=== PATIENT | female | born 1955 | race Caucasian/White ===

== ENCOUNTER → 2017-06-02 | Outpatient (CLI) | payer OTHER ==
[~2017-06-02] MED LIST: BUTRANS10 MCG/HR TD; BUTRANS5 MCG/HR T; CALTRATE 600+D1 EACH PO; CLARITIN10 MG PO; MEDROL DOSEPAK4 MG PO; PERCOCET 325 MG1 TA2 PO; PERCOCET 325 MG1 TA5 PO; RUFEN800 MG PO; ULTRAM50 MG PO; ZITHROMAX Z PA250 MG PO; ZOCOR20 MG PO
[2017-06-02 09:12] LABS: BASO # 0.1 10*3/uL (0.0-0.1); BASO % 0.4 % (0.0-1.0); EOS # 0.7 10*3/uL (0.0-0.4); EOS % 5.1 % (1.0-4.0); HEMATOCRIT 47.9 % (37.0-47.0); HEMOGLOBIN 15.6 g/dl (12.0-16.0); LYMPH # 3.6 10*3/uL (1.3-4.4); LYMPH % 25.4 % (27.0-41.0); MEAN CELL VOLUME 93.4 fl (81.0-99.0); MEAN CORPUSCULAR HGB 30.4 pg (27.0-31.0); MEAN CORPUSCULAR HGB CONC 32.6 g/dl (33.0-37.0); MEAN PLATELET VOLUME 12.6 fl (9.6-12.3); MONO # 0.7 10*3/uL (0.1-1.0); NEUT # 9.1 10*3/uL (2.3-7.9); NEUT % 63.8 % (47.0-73.0); PLATELET COUNT AUTOMATED 237 10*3/uL (130-400); RED BLOOD COUNT 5.13 10*6/uL (4.10-5.10); RED CELL DISTRI WIDTH 13.2 % (0-14.5); WHITE BLOOD COUNT 14.3 10*3/uL (4.8-10.8)
[2017-06-02 09:18] LABS: ALBUMIN 3.5 gm/dl (3.1-4.5); ALKALINE PHOSPHATASE 136 U/L (45-117); BUN 10 mg/dl (7-24); CHLORIDE 105 mmol/L (98-107); CHOLESTEROL 249 mg/dL (<200); CREATININE 0.84 mg/dL (0.55-1.02); HDL CHOLESTEROL 42 mg/dl (40-60); LDL CHOLESTEROL 165 mg/dL (9-159); POTASSIUM 4.7 mmol/L (3.5-5.1); SGOT/AST 10 IU/L (3-35); SGPT/ALT 21 U/L (12-78); SODIUM 142 mmol/L (136-145); TOTAL PROTEIN 7.5 gm/dL (6.4-8.2); TRIGLYCERIDES 211 mg/dl (<150); VLDL CHOLESTEROL 42 mg/dL (6-40)
== END | disposition home or self-care (01) ==
LOC: LAB 08:11
PROVIDERS: Family Medicine
DX: J94.8 Other specified pleural conditions (principal); J43.9 Emphysema, unspecified; E78.5 Hyperlipidemia, unspecified; T17.908A Unspecified foreign body in respiratory tract, part unspecified causing other injury, initial encounter; J06.9 Acute upper respiratory infection, unspecified; F17.210 Nicotine dependence, cigarettes, uncomplicated

== ENCOUNTER → 2019-03-07 | Outpatient (CLI) | payer OTHER | END | disposition home or self-care (01) | LOC: MAMMO 08:20 | DX: Z12.31 Encounter for screening mammogram for malignant neoplasm of breast (principal) ==

== ENCOUNTER → 2019-03-20 | Outpatient (CLI) | payer OTHER | END | disposition home or self-care (01) | LOC: CARD 01:25 | DX: Z13.820 Encounter for screening for osteoporosis (principal); R06.00 Dyspnea, unspecified; F17.210 Nicotine dependence, cigarettes, uncomplicated; M25.561 Pain in right knee ==

== ENCOUNTER → 2019-03-28 | Outpatient (CLI) | payer OTHER | END | disposition home or self-care (01) | LOC: RAD 03-01 13:30 | DX: Z13.820 Encounter for screening for osteoporosis (principal); M25.561 Pain in right knee; M25.562 Pain in left knee; F17.210 Nicotine dependence, cigarettes, uncomplicated; R06.00 Dyspnea, unspecified ==

== ENCOUNTER → 2019-04-16 | Outpatient (CLI) | payer OTHER | END | disposition home or self-care (01) | LOC: RAD 07:20 | DX: J44.9 Chronic obstructive pulmonary disease, unspecified (principal); M25.561 Pain in right knee; M25.562 Pain in left knee; R06.02 Shortness of breath ==

== ENCOUNTER → 2019-04-17 | Outpatient (CLI) | payer OTHER ==
--- NOTE | ~2019-04-17 | PF ---
[place], [place] PULMONARY FUNCTION TEST NAME: [id number] UNIT #: [id number] ROOM: DOCTOR: CHADD LANDERS MD,ANTONIA BIRTHDATE: [birth year] DOS: 04/17/2019 ORDERED BY: Laura Moreira DO HISTORY: The patient recorded as 63-year-old female, height of 65 inches, weight of 200 pounds with BMI 33.3. The test was done for assessment of symptoms of coughing and shortness of breath. Tobacco use noted 1 pack of cigarettes per day for 50 years. SPIROMETRY: The FVC was recorded 1.88 liters, 59% predicted value with a 50% improvement and complete resolution to normal FEV1 after post-bronchodilators as 90% noted. The FEV1 recorded 1.42 liters, 57% predicted value, moderately decreased with complete resolution to normal FEV1 as 84% with 46% change. Ratio of FEV1/FVC recorded 79%. Flow volume loop was suggestive of reversible obstructive lung disease. LUNG VOLUME: Thoracic gas volume recorded as 145%, residual volume 202%, total lung capacity 126%. RV/TLC ratio of 157%, moderate reduction in lung diffusion recorded 60% without correction of carbon monoxide, hemoglobin values. The patient has normal lung function of airway resistance and passive conductance noted with reversibility after bronchodilator. FINAL IMPRESSION: Current test was suggestive of finding consistent with a severe bronchial asthma. Clinical correlation would be advised. ANTONIA FLORENTINO MD CM:PFREPORT:PULMONARY FUNCTION TEST [id number] ANTONIA LANDERS MD
== END | disposition home or self-care (01) ==
LOC: CP 04-04 02:01
DX: R06.00 Dyspnea, unspecified (principal); F17.200 Nicotine dependence, unspecified, uncomplicated

== ENCOUNTER 2020-11-26 10:32 | Emergency (ER) | payer MEDICARE ==
[~2020-11-26] VITALS: Wt 107.5 kg
[2020-11-26 11:26] LABS: BASO % 0.3 % (0.0-1.0); EOS # 0.4 10*3/uL (0.0-0.4); EOS % 3.8 % (1.0-4.0); HEMATOCRIT 46.4 % (37.0-47.0); LYMPH # 2.6 10*3/uL (1.3-4.4); LYMPH % 26.1 % (27.0-41.0); MEAN CELL VOLUME 92.8 fl (81.0-99.0); MEAN CORPUSCULAR HGB CONC 32.3 g/dl (33.0-37.0); MONO # 0.6 10*3/uL (0.1-1.0); NEUT # 6.3 10*3/uL (2.3-7.9); NEUT % 63.5 % (47.0-73.0); PLATELET COUNT AUTOMATED 215 10*3/uL (130-400); RED CELL DISTRI WIDTH 12.9 % (0-14.5)
[2020-11-26 11:46] LABS: ALBUMIN 3.5 gm/dl (3.1-4.5); ALKALINE PHOSPHATASE 135 U/L (45-117); BUN 8 mg/dl (7-24); CHLORIDE 105 mmol/L (98-107); CREATININE 0.91 mg/dL (0.55-1.02); POTASSIUM 4.2 mmol/L (3.5-5.1); SGOT/AST 8 IU/L (3-35); SGPT/ALT 25 U/L (12-78); SODIUM 139 mmol/L (136-145); TOTAL PROTEIN 7.3 gm/dL (6.4-8.2)
[2020-11-26 11:52] LABS: TROPONIN I < 0.015 ng/ml (<0.045)
[2020-11-26] MEDS ORDERED: AVPAK AZITHROM250 M1 PO (13:05)
[2020-11-26] MEDS ORDERED: PREDNISONE50 MG PO (13:05)
[2020-11-26] MEDS ORDERED: PROAIR HFA8.5 GM INH (13:05)
== END 2020-11-26 13:20 | disposition home or self-care (01) ==
LOC: ED 10:32
PROVIDERS: Internal Medicine
DX: J44.1 Chronic obstructive pulmonary disease with (acute) exacerbation (principal); F17.200 Nicotine dependence, unspecified, uncomplicated; Z90.89 Acquired absence of other organs; Z88.5 Allergy status to narcotic agent

== ENCOUNTER → 2020-12-18 | Outpatient (CLI) | payer MEDICARE ==
[~2020-12-18] MED LIST changes: +AVPAK AZITHROM250 M1 PO; +PREDNISONE50 MG PO; +PROAIR HFA8.5 GM INH
== END | disposition home or self-care (01) ==
LOC: MAMMO 10:30
PROVIDERS: ATTEND Family Medicine
DX: Z12.31 Encounter for screening mammogram for malignant neoplasm of breast (principal)

== ENCOUNTER → 2021-06-30 | Outpatient (CLI) | payer MEDICARE ==
[2021-06-30 10:50] LABS: BASO # 0.1 10*3/uL (0.0-0.1); BASO % 0.5 % (0.0-1.0); EOS # 0.4 10*3/uL (0.0-0.4); EOS % 3.8 % (1.0-4.0); HEMATOCRIT 44.7 % (37.0-47.0); LYMPH # 3.1 10*3/uL (1.3-4.4); LYMPH % 26.5 % (27.0-41.0); MEAN CELL VOLUME 92.9 fl (81.0-99.0); MEAN CORPUSCULAR HGB 30.1 pg (27.0-31.0); MEAN CORPUSCULAR HGB CONC 32.4 g/dl (33.0-37.0); MEAN PLATELET VOLUME 11.8 fl (9.6-12.3); MONO # 0.6 10*3/uL (0.1-1.0); MONO % 4.9 % (3.0-9.0); NEUT # 7.5 10*3/uL (2.3-7.9); NEUT % 63.8 % (47.0-73.0); PLATELET COUNT AUTOMATED 252 10*3/uL (130-400); RED BLOOD COUNT 4.81 10*6/uL (4.10-5.10); RED CELL DISTRI WIDTH 13.1 % (0-14.5); WHITE BLOOD COUNT 11.7 10*3/uL (4.8-10.8)
[2021-06-30 11:10] LABS: ALBUMIN 3.4 gm/dl (3.1-4.5); BUN 13 mg/dl (7-24); CHLORIDE 106 mmol/L (98-107); CHOLESTEROL 151 mg/dL (<200); CREATININE 0.99 mg/dL (0.55-1.02); IRON 78 ug/dL (50-170); LDL CHOLESTEROL 59 mg/dL (9-159); POTASSIUM 4.6 mmol/L (3.5-5.1); SGOT/AST 19 IU/L (3-35); SGPT/ALT 43 U/L (12-78); SODIUM 138 mmol/L (136-145); TRIGLYCERIDES 336 mg/dl (<150)
[2021-06-30 11:14] LABS: ALKALINE PHOSPHATASE 109 U/L (45-117); TOTAL PROTEIN 7.3 gm/dL (6.4-8.2)
[2021-06-30 14:28] LABS: FERRITIN 188.7 ng/mL (10.0-291.0); VITAMIN D, 25-HYDROXY 12.5 ng/mL (30-100)
== END | disposition home or self-care (01) ==
LOC: LAB 08:39 → US 08:39 → RAD 10:00
PROVIDERS: ATTEND Registered Nurse Nephrology
DX: K76.0 Fatty (change of) liver, not elsewhere classified (principal); R40.0 Somnolence; R73.03 Prediabetes; E78.00 Pure hypercholesterolemia, unspecified; M54.9 Dorsalgia, unspecified; R12 Heartburn; E55.9 Vitamin D deficiency, unspecified; E66.01 Morbid (severe) obesity due to excess calories; Z68.41 Body mass index [BMI] 40.0-44.9, adult

== ENCOUNTER → 2021-09-21 | Day surgery (SDC) | payer MEDICARE ==
[~2021-09-21] VITALS: Ht 162.5 cm; Wt 104.3 kg
[2021-09-21 07:26] VITALS: BP 118/68
[2021-09-21 08:18] VITALS: BP 153/73
[2021-09-21 08:26] VITALS: BP 165/87
[2021-09-21 08:45] VITALS: BP 153/70
== END | disposition home or self-care (01) ==
LOC: SDC 09-17 08:45
PROVIDERS: ATTEND Surgery
DX: Z12.11 Encounter for screening for malignant neoplasm of colon (principal); D12.3 Benign neoplasm of transverse colon; D12.5 Benign neoplasm of sigmoid colon; Z86.010 Personal history of colon polyps; K21.9 Gastro-esophageal reflux disease without esophagitis; J44.9 Chronic obstructive pulmonary disease, unspecified; E78.2 Mixed hyperlipidemia; E11.9 Type 2 diabetes mellitus without complications; F17.210 Nicotine dependence, cigarettes, uncomplicated; Z88.5 Allergy status to narcotic agent; G47.33 Obstructive sleep apnea (adult) (pediatric); Z79.899 Other long term (current) drug therapy

== ENCOUNTER → 2022-07-20 | Outpatient (CLI) | payer MEDICARE ==
[2022-07-20 15:23] LABS: BASO % 0.4 % (0.0-1.0); EOS # 0.5 10*3/uL (0.0-0.4); EOS % 5.1 % (1.0-4.0); HEMATOCRIT 43.8 % (37.0-47.0); LYMPH # 3.3 10*3/uL (1.3-4.4); LYMPH % 31.5 % (27.0-41.0); MEAN CELL VOLUME 92.4 fl (81.0-99.0); MEAN CORPUSCULAR HGB 30.2 pg (27.0-31.0); MEAN CORPUSCULAR HGB CONC 32.6 g/dl (33.0-37.0); MEAN PLATELET VOLUME 12.9 fl (9.6-12.3); MONO # 0.5 10*3/uL (0.1-1.0); MONO % 4.9 % (3.0-9.0); NEUT # 6.1 10*3/uL (2.3-7.9); NEUT % 57.8 % (47.0-73.0); PLATELET COUNT AUTOMATED 233 10*3/uL (130-400); RED BLOOD COUNT 4.74 10*6/uL (4.10-5.10); RED CELL DISTRI WIDTH 13.2 % (0-14.5); WHITE BLOOD COUNT 10.6 10*3/uL (4.8-10.8)
[2022-07-20 15:41] LABS: ALKALINE PHOSPHATASE 75 U/L (46-116); BUN 11 mg/dl (9-23); CHLORIDE 108 mmol/L (98-107); POTASSIUM 4.2 mmol/L (3.4-5.1); SGPT/ALT 14 U/L (10-49); TOTAL PROTEIN 6.9 gm/dL (6.0-8.0)
== END | disposition home or self-care (01) ==
LOC: LAB 14:31
PROVIDERS: ATTEND Registered Nurse Nephrology
DX: E61.7 Deficiency of multiple nutrient elements (principal); E66.01 Morbid (severe) obesity due to excess calories; R10.13 Epigastric pain; K76.0 Fatty (change of) liver, not elsewhere classified; M54.9 Dorsalgia, unspecified

== ENCOUNTER → 2022-12-13 | Outpatient (CLI) | payer MEDICARE | END | disposition home or self-care (01) | LOC: RAD 11:18 | PROVIDERS: ATTEND Family Medicine | DX: M47.814 Spondylosis without myelopathy or radiculopathy, thoracic region (principal) ==

== ENCOUNTER → 2023-08-22 | Outpatient (CLI) | payer MEDICARE | END | disposition home or self-care (01) | LOC: US 02:01 | PROVIDERS: ATTEND Family Medicine | DX: R22.1 Localized swelling, mass and lump, neck (principal) ==

== ENCOUNTER → 2024-03-06 | Outpatient (CLI) | payer MEDICARE | END | disposition home or self-care (01) | LOC: RAD 17:24 | PROVIDERS: ATTEND Family Medicine | DX: J44.9 Chronic obstructive pulmonary disease, unspecified (principal); R10.10 Upper abdominal pain, unspecified ==

== ENCOUNTER → 2024-03-13 | Outpatient (CLI) | payer MEDICARE ==
[~2024-03-13] MED LIST changes: +Albuterol Sulfate 2.5 MG/3 ML VIAL NEB ONE
== END | disposition home or self-care (01) ==
LOC: CP 10:12
PROVIDERS: ATTEND Student in an Organized Health Care Education/Training Program
DX: J45.909 Unspecified asthma, uncomplicated (principal)

== ENCOUNTER → 2024-04-13 | Outpatient (CLI) | payer MEDICARE ==
[~2024-04-13] MED LIST changes: -Albuterol Sulfate 2.5 MG/3 ML VIAL NEB ONE
== END | disposition home or self-care (01) ==
LOC: RAD 08:39
PROVIDERS: ATTEND Family Medicine
DX: R91.8 Other nonspecific abnormal finding of lung field (principal); J44.9 Chronic obstructive pulmonary disease, unspecified; I25.10 Atherosclerotic heart disease of native coronary artery without angina pectoris; M81.0 Age-related osteoporosis without current pathological fracture; F17.210 Nicotine dependence, cigarettes, uncomplicated

== ENCOUNTER → 2024-05-03 | Outpatient (CLI) | payer MEDICARE | END | disposition home or self-care (01) | LOC: US 04-26 08:30 | PROVIDERS: ATTEND Family Medicine | DX: N28.1 Cyst of kidney, acquired (principal); D73.89 Other diseases of spleen ==

== ENCOUNTER → 2024-05-11 | Outpatient (CLI) | payer MEDICARE | END | disposition home or self-care (01) | LOC: LAB 09:35 → MRI 10:00 | PROVIDERS: ATTEND Family Medicine | DX: K44.9 Diaphragmatic hernia without obstruction or gangrene (principal); D73.89 Other diseases of spleen ==

== ENCOUNTER → 2024-05-17 | Outpatient (CLI) | payer MEDICARE | END | disposition home or self-care (01) | LOC: MAMMO 00:06 | PROVIDERS: ATTEND Family Medicine | DX: Z12.31 Encounter for screening mammogram for malignant neoplasm of breast (principal) ==

== ENCOUNTER → 2024-08-16 | Outpatient (CLI) | payer MEDICARE | END | disposition home or self-care (01) | LOC: US 07:49 | PROVIDERS: ATTEND Family Medicine | DX: D73.4 Cyst of spleen (principal) ==